=== PATIENT | male | born 1960 | race Caucasian/White ===

== ENCOUNTER 2022-05-24 13:36 | Outpatient (CLI) | payer OTHER ==
--- NOTE | 2022-05-24 14:37 | XRAY Report ---
PROCEDURE: Chest 2 View X-Ray INDICATIONS: ASTHMA, COUGH, SOB TECHNIQUE: 2 view(s) of the chest. COMPARISON: None. FINDINGS: Surgical changes and devices: None. Lungs and pleura: No parenchymal consolidation, effusion, or pneumothorax. Lungs are slightly hyperi nflated. There is a 5 mm nodule laterally in the left midlung. Mediastinum: Mediastinal contours are normal. Heart size is normal. Bones and chest wall: No suspicious bony abnormalities. Soft tissues appear unremarkable. IMPRESSION: 1. No acute pulmonary disease. 2. 5 mm left lung nodule is nonspecific, potentially vascular, soft tissue, or intraparenchymal. Ches t CT is recommended on a routine basis for further evaluation. Reviewed by: Daya Ng MD on 05/24/2022 2:35 PM PDT Approved by: Daya Ng MD on 05/24/2022 2:35 PM PDT Station ID: [id number]
== END 2022-05-24 13:37 | disposition home or self-care (01) ==
LOC: DI 13:36
PROVIDERS: ATTEND Registered Nurse
DX: J45.31 Mild persistent asthma with (acute) exacerbation (principal); R91.1 Solitary pulmonary nodule

== ENCOUNTER 2022-06-03 13:12 | Outpatient (CLI) | payer OTHER ==
--- NOTE | 2022-06-03 14:14 | CT Report ---
PROCEDURE: CT chest without contrast INDICATIONS: ABN CHEST XRAY TECHNIQUE: Noncontrast 1mm axial images were acquired from the pulmonary apices to the posterior costophrenic an gles. Axial 5 mm soft tissue kernel reconstructions were performed as well as 8 mm axial MIP and cor onal and sagittal 5 mm reformations. For radiation dose reduction, the following was used: automate d exposure control, adjustment of mA and/or kV according to patient size. COMPARISON: Chest x-ray 05/24/2022 FINDINGS: Image quality: Excellent. Lungs and pleura: There are 2 calcified granulomas noted in the left upper lobe measuring 5 mm corres ponding with prior chest x-ray. 5 mm nodule in the right upper lobe on image 4/117 is noncalcified. A dditionally comes right upper lobe groundglass opacity with associated adjacent bronchiectasis. Simil ar groundglass opacities are present in the right middle lobe with a "tree-in-bud "appearance. Right lower lobe nodular infiltrative densities associated with linear scarring present in the costophrenic sulcus measuring up to 1.6 cm. Small calcified nodules noted in the right lower lobe on image 4/193 Mediastinum: Heart size is normal. No pericardial effusion. No mediastinal adenopathy by size crit eria. Thoracic aorta and central pulmonary arteries are normal in size. Esophagus is normal in rod unique. No hiatal hernia. Bones and chest wall: No suspicious bony lesions. No vertebral body compression fractures. No axil louis or supraclavicular adenopathy by size criteria. The thyroid is normal in size and there are no incidental findings. Abdomen: Visualized upper abdominal solid organs and bowel loops appear normal in the absence of con trast. Surgical clips in the gallbladder fossa. IMPRESSION: 1. Several bilateral calcified and noncalcified nodules as detailed above. Associated groundglass opa cities and "tree-in-bud" densities suggesting an infectious or inflammatory etiology. Consider 3-6 mo nth follow-up to assess stability Reviewed by: Zhang Corbett MD on 06/03/2022 1:12 PM AKDT Approved by: Zhang Corbett MD on 06/03/2022 1:12 PM AKDT Station ID: [id number]
== END 2022-06-03 13:13 | disposition home or self-care (01) ==
LOC: DI 13:12
PROVIDERS: ATTEND Registered Nurse
DX: R91.8 Other nonspecific abnormal finding of lung field (principal)